=== PATIENT | female | born 1990 | race Caucasian/White ===

== ENCOUNTER 2016-12-23 08:49 | Emergency (ER) | payer OTHER ==
[~2016-12-23] VITALS: Ht 151.1 cm; Wt 43.2 kg
[~2016-12-23 08:49] MED LIST: ALBU0.08 INH; LEVO-18 PO; ONDA8TAB9 PO
[2016-12-23 08:53] VITALS: TEMP 36.7; Ht 151.1 cm; Wt 43.2 kg
[2016-12-23] MEDS ORDERED: SODIUM CHLORIDE 0.9% 1000ML 1,000 ML IV STA (09:14)
[2016-12-23] MEDS ORDERED: ONDANSETRON INJ 2 MG/ML 2 ML VIAL IV STA (09:14)
[2016-12-23 09:23] LABS: BASO % 0.2 %; BASO ABS # 0.02 K/uL (0-0.2); COMPLETE YES; EOS % 0.4 %; HEMATOCRIT 44.4 % (37-47); IG% 0.2 %; LYMPH % 17.9 %; LYMPH ABS # 1.72 K/uL (1.2-3.4); MEAN CELL VOLUME 90.6 fL (80-100); MEAN CORPUSCULAR HEMOGLOBIN 30.4 pg (25-34); MEAN CORPUSCULAR HGB CONC 33.6 g/dl (32-36); MEAN PLATELET VOLUME 10.2 fL (7.4-10.4); MONO % 8.8 %; NEUT % 72.5 %; PLATELET COUNT 207 K/uL (130-400); WHITE BLOOD COUNT 9.59 K/uL (4.8-10.8)
[2016-12-23] MEDS: FENTANYL CITRATE INJ 50 MCG/1 ML 2 ML VIAL IV PRN ×2 (09:27→11:24)
[2016-12-23 09:33] LABS: CALCIUM 8.9 mg/dl (8.5-10.1)
[2016-12-23] MEDS ORDERED: SBTSL/8 PO (09:33)
[2016-12-23] MEDS ORDERED: ALBINS/ INH (09:33)
[2016-12-23 09:34] LABS: ALT/SGPT 19 U/L (12-78); BLOOD UREA NITROGEN 10 mg/dl (7-18); BUN/CREATININE RATIO 15.4 (10-20); CARBON DIOXIDE 25 mmol/L (21-32); CHLORIDE 105 mmol/L (98-107); CREATININE 0.65 mg/dl (0.60-1.20); GLUCOSE 93 mg/dl (70-99); POTASSIUM 3.8 mmol/L (3.5-5.1); SODIUM 140 mmol/L (136-145)
[2016-12-23 09:34] LABS: URINE APPEARANCE CLOUDY (CLEAR); URINE BILIRUBIN NEG (NEG); URINE COLOR DK YELLOW; URINE EPITHELIAL CELL AUTO >30 /lpf (0-5); URINE NITRITE NEG (NEG); URINE PH 7.5 (4.5-7.5); UROBILINOGEN NEG (NEG); ZZUR CULT IF INDIC CLEAN CATCH YES
--- NOTE | 2016-12-23 09:35 | DIAGNOSTIC IMAGING REPORT ---
CHEST ONE VIEW PORTABLE CLINICAL HISTORY: ABDOMINAL PAIN/GI pain. Nausea. COMPARISON STUDY: No previous studies for comparison. FINDINGS: Moderate pulmonary hyperaeration. Patient is rotated somewhat to the left. Underlying emphysematous change. IMPRESSION: Pulmonary hyperaeration. Electronically signed by: Bipin Carcamo M.D. 12/23/2016 9:33 AM Dictated Date/Time: 12/23/2016 9:32 AM
[2016-12-23 09:37] LABS: ALKALINE PHOSPHATASE 81 U/L (45-117); AST/SGOT 14 U/L (15-37)
[2016-12-23 09:42] LABS: MANUAL MICROSCOPIC REQUIRED? NO; REVIEW REQ? NO
--- NOTE | 2016-12-23 10:57 | EMERGENCY ROOM VISIT NOTE ---
History Report prepared by Marielena: David Jefferson Under the Supervision of: Dr. Sulaiman Geller D.O. First contact with patient: 09:09 Chief Complaint: ABDOMINAL PAIN Stated Complaint: ABDOMINAL PAIN Nursing Triage Summary: pt reports abdominal pain started this morning. hx of pancreatitis History of Present Illness The patient is a 26 year old female who presents to the Emergency Room via EMS with complaints of worsening abdominal pain that started this morning. The patient is tearful due to the pain and she currently rates the pain as a 10 out of 10 in severity. She notes that 3 years ago, she was swimming in the [employer] and ended up getting a parasite, and she later developed pancreatitis. The patient says that she was told by doctors in [place] that she may possibly be developing cancer in her pancreas. She states that she has only taken the medication that she was given in the ambulance. The patient takes prescribed Buprenorphine because she says that she has been on pain medications all her life to to chronic pain problems. 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 The patient also notes chronic back pain. Source of History: patient Onset: This morning Position: abdomen Symptom Intensity: 10/10 in severity, crying Timing: worsening Note: No other associated symptoms noted. Review of Systems See HPI for pertinent positives & negatives. A total of 10 systems reviewed and were otherwise negative. 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 Surgical Problems: (1) Bowel surgery (2) dental surgery (3) History of intestinal surgery (4) Surgery to correct clubfoot Family History Cancer Diabetes mellitus Hypertension Seizures Social History Smoking Status: Current Every Day Smoker Alcohol Use: none Marital Status: single Occupation Status: unemployed Current/Historical Medications Scheduled Albuterol Sulf (Proventil 0.083% 2.5MG/3ML), 2.5 MG INH QID Buprenorphine HCl (Buprenorphine HCl), 8 MG PO TID Allergies Coded Allergies: Anesthetics, Amide (Unverified Allergy, Unknown, /, 12/23/16) ANESTHETICS Ketorolac Tromethamine (Unverified Allergy, Unknown, ., 12/23/16) Naloxone (Unverified Allergy, Unknown, ., 12/23/16) Penicillins (Unverified Allergy, Unknown, ., 12/23/16) Physical Exam Vital Signs Date Time Temp Pulse Resp B/P Pulse Ox O2 Delivery O2 Flow Rate FiO2 12/23/16 10:49 94 18 143/96 96 Room Air 12/23/16 09:27 79 16 114/82 96 Room Air 12/23/16 09:02 69 12/23/16 08:53 36.7 81 16 157/97 100 Room Air Physical Exam CONSTITUTIONAL/VITAL SIGNS: Reviewed / noted above. GENERAL: Non-toxic in appearance. INTEGUMENTARY: Warm, dry, and [place]. HEAD: Normocephalic. EYES: without scleral icterus or trauma. ENT/OROPHARYNX: clear and moist. LYMPHADENOPATHY/NECK: Is supple without lymphadenopathy or meningismus. RESPIRATORY: Lungs clear and equal. CARDIOVASCULAR: Regular rate and rhythm. GI/ABDOMEN: Soft. Mild epigastric tenderness.No organomegaly or pulsatile mass. No rebound or guarding. Normal bowel sounds. EXTREMITIES: Warm and well perfused. BACK: No CVA tenderness. NEUROLOGICAL: Intact without focal deficits. PSYCHIATRIC: normal affect. MUSCULOSKELETAL: Normally developed with good muscle tone. Medical Decision & Procedures ER Provider Diagnostic Interpretation: X ray results and stated below per my interpretation and radiology interpretation. CHEST ONE VIEW PORTABLE CLINICAL HISTORY: ABDOMINAL PAIN/GI pain. Nausea. COMPARISON STUDY: No previous studies for comparison. FINDINGS: Moderate pulmonary hyperaeration. Patient is rotated somewhat to the left. Underlying emphysematous change. IMPRESSION: Pulmonary hyperaeration. Electronically signed by: Bipin Carcamo M.D. 12/23/2016 9:33 AM Dictated Date/Time: 12/23/2016 9:32 AM Laboratory Results 12/23/16 08:53 Red Blood Count 4.90, Mean Corpuscular Volume 90.6, Mean Corpuscular Hemoglobin 30.4, Mean Corpuscular Hemoglobin Concent 33.6, Mean Platelet Volume 10.2, Neutrophils (%) (Auto) 72.5, Lymphocytes (%) (Auto) 17.9, Monocytes (%) (Auto) 8.8, Eosinophils (%) (Auto) 0.4, Basophils (%) (Auto) 0.2, Neutrophils # (Auto) 6.95, Lymphocytes # (Auto) 1.72, Monocytes # (Auto) 0.84, Eosinophils # (Auto) 0.04, Basophils # (Auto) 0.02 12/23/16 08:53 Test 12/23/16 08:53 12/23/16 08:57 White Blood Count 9.59 K/uL (4.8-10.8) Red Blood Count 4.90 M/uL (4.2-5.4) Hemoglobin 14.9 g/dL (12.0-16.0) Hematocrit 44.4 % (37-47) Mean Corpuscular Volume 90.6 fL (80-100) Mean Corpuscular Hemoglobin 30.4 pg (25-34) Mean Corpuscular Hemoglobin Concent 33.6 g/dl (32-36) Platelet Count 207 K/uL (130-400) Mean Platelet Volume 10.2 fL (7.4-10.4) Neutrophils (%) (Auto) 72.5 % Lymphocytes (%) (Auto) 17.9 % Monocytes (%) (Auto) 8.8 % Eosinophils (%) (Auto) 0.4 % Basophils (%) (Auto) 0.2 % Neutrophils # (Auto) 6.95 K/uL (1.4-6.5) Lymphocytes # (Auto) 1.72 K/uL (1.2-3.4) Monocytes # (Auto) 0.84 K/uL (0.11-0.59) Eosinophils # (Auto) 0.04 K/uL (0-0.5) Basophils # (Auto) 0.02 K/uL (0-0.2) RDW Standard Deviation 42.6 fL (36.4-46.3) RDW Coefficient of Variation 13.0 % (11.5-14.5) Immature Granulocyte % (Auto) 0.2 % Immature Granulocyte # (Auto) 0.02 K/uL (0.00-0.02) Anion Gap 10.0 mmol/L (3-11) Est Creatinine Clear Calc Drug Dose 89.4 ml/min Estimated GFR () 142.0 Estimated GFR (Non- 122.5 BUN/Creatinine Ratio 15.4 (10-20) Calcium Level 8.9 mg/dl (8.5-10.1) Total Bilirubin 0.3 mg/dl (0.2-1) Direct Bilirubin < 0.1 mg/dl (0-0.2) Aspartate Amino Transf (AST/SGOT) 14 U/L (15-37) Alanine Aminotransferase (ALT/SGPT) 19 U/L (12-78) Alkaline Phosphatase 81 U/L (45-117) Total Protein 7.9 gm/dl (6.4-8.2) Albumin 3.9 gm/dl (3.4-5.0) Lipase 133 U/L (73-393) Urine Color DK YELLOW Urine Appearance CLOUDY (CLEAR) Urine pH 7.5 (4.5-7.5) Urine Specific [place] 1.030 (1.000-1.030) Urine Protein TRACE (NEG) Urine Glucose (UA) NEG (NEG) Urine Ketones 3+ (NEG) Urine Occult Blood NEG (NEG) Urine Nitrite NEG (NEG) Urine Bilirubin NEG (NEG) Urine Urobilinogen NEG (NEG) Urine Leukocyte Esterase NEG (NEG) Urine WBC (Auto) 1-5 /hpf (0-5) Urine RBC (Auto) 0-4 /hpf (0-4) Urine Hyaline Casts (Auto) 1-5 /lpf (0-5) Urine Epithelial Cells (Auto) >30 /lpf (0-5) Urine Bacteria (Auto) 1+ (NEG) Urine Test NEG (NEG) Laboratory results as stated above per my review. Medications Administered Medications (Trade) Dose Ordered Sig/Shelley Route Start Time Stop Time Status Last Admin Dose Admin Sodium Chloride (Nss 1000ml) 1,000 ml @ 999 mls/hr Q1H1M STAT IV 12/23/16 09:14 12/23/16 10:14 DC 12/23/16 09:14 999 MLS/HR Ondansetron HCl (Zofran Inj) 4 mg NOW STAT IV 12/23/16 09:14 12/23/16 09:16 DC 12/23/16 09:26 4 MG Fentanyl Citrate (Fentanyl Inj) 50 mcg Q1H PRN IV 12/23/16 09:15 01/06/17 09:14 12/23/16 09:27 50 MCG ED Course 0910: Previous medical records were reviewed. The patient was evaluated in room B11B. A complete history and physical examination was performed. 0914: Ordered Zofran Inj 4 mg IV, NSS 1000 ml @ 999 mls/hr IV. 0915: Ordered Fentanyl Inj 50 mcg IV PRN. Medical Decision Differential considered: pancreatitis, hepatitis, or acute cholecystitis, AAA, UTI, pyelonephritis, kidney stones, appendicitis, diverticulitis, shingles, bowel obstruction mesenteric ischemia, intussusception,hernia, ovarian torsion , ruptured ovarian cyst,ectopic , . This is a 26-year-old female who presents to the ED with a chief complaint of epigastric abdominal pain. She is transferred by EMS and given fentanyl IV. The patient presents stating that she developed pain today. She reports a history of pancreatitis in the past. She is on chronic medication for chronic pain. She later told me that she ran out of this medication and is not due for refill until next week. Physical exam reveals mild epigastric tenderness. Chest x-ray did not show acute disease. CBC is normal. Complete metabolic panel was normal. Lipase is negative. Urine revealed 3+ ketones. She is not . The patient was treated with IV Zofran, IV fluids and IV fentanyl. She is felt to be stable for discharge and outpatient follow-up. Impression Primary Impression: Epigastric abdominal pain Scribe Attestation The scribe's documentation has been prepared under my direction and personally reviewed by me in its entirety. I confirm that the note above accurately reflects all work, treatment, procedures, and medical decision making performed by me. Departure Information Dispostion Home / Self-Care Referrals No Doctor, Assigned (PCP) Patient Instructions My [facility] Additional Instructions Follow-up with your doctor for further care and evaluation in 1-2 days. Return to the emergency department for worsening or new symptoms or any concerns. You have been examined and treated today on an emergency basis only. This is not a substitute for, or an effort to provide, complete comprehensive medical care. It is impossible to recognize and treat all injuries or illnesses in a single emergency department visit. It is therefore important that you follow up closely with your doctor. Call as soon as possible for an appointment.
[2016-12-23 11:23] VITALS: BP 145/100; PULSE 83; O2SAT 99
== END 2016-12-23 11:35 | disposition home or self-care (01) ==
LOC: C.EDB 08:49 → EDBD 08:49 → C.EDB 11:35
DX: R10.13 Epigastric pain (principal); Z87.19 Personal history of other diseases of the digestive system; J45.909 Unspecified asthma, uncomplicated; F32.9 Major depressive disorder, single episode, unspecified; Q33.6 Congenital hypoplasia and dysplasia of lung; Z80.9 Family history of malignant neoplasm, unspecified; Z83.3 Family history of diabetes mellitus; Z82.49 Family history of ischemic heart disease and other diseases of the circulatory system; F17.210 Nicotine dependence, cigarettes, uncomplicated; Z79.899 Other long term (current) drug therapy

== ENCOUNTER 2017-03-25 17:54 | Emergency (ER) | payer OTHER ==
[~2017-03-25] VITALS: Ht 151.1 cm; Wt 44.0 kg
[~2017-03-25 17:54] MED LIST changes: +ALBINS/ INH; -ALBU0.08 INH; -LEVO-18 PO; -ONDA8TAB9 PO; +SBTSL/8 PO
[2017-03-25 18:07] VITALS: Ht 151.1 cm; Wt 44.0 kg
[2017-03-25] MEDS ORDERED: ONDANSETRON INJ 2 MG/ML 2 ML VIAL IV STA (18:12)
[2017-03-25] MEDS ORDERED: DiphenhydrAMINE HCL 50 MG/ML VIAL IV STA (18:12)
[2017-03-25] MEDS ORDERED: SODIUM CHLORIDE 0.9% 1000ML 1,000 ML IV ONE (18:15)
[2017-03-25] MEDS ORDERED: ACETAMINOPHEN IV 650 MG in EMPTY BAG 0 ML IV ONE (18:15)
[2017-03-25] MEDS ORDERED: BUPR8SUB19 SL (18:43)
[2017-03-25] MEDS ORDERED: PRLSR20 PO (18:43)
[2017-03-25 19:04] LABS: BASO % 0.2 %; BASO ABS # 0.02 K/uL (0-0.2); COMPLETE YES; EOS % 0.6 %; HEMATOCRIT 43.8 % (37-47); IG% 0.1 %; LYMPH % 18.9 %; LYMPH ABS # 1.79 K/uL (1.2-3.4); MEAN CELL VOLUME 89.8 fL (80-100); MEAN CORPUSCULAR HEMOGLOBIN 30.1 pg (25-34); MEAN CORPUSCULAR HGB CONC 33.6 g/dl (32-36); MEAN PLATELET VOLUME 9.5 fL (7.4-10.4); MONO % 5.9 %; NEUT % 74.3 %; PLATELET COUNT 221 K/uL (130-400); RED BLOOD COUNT 4.88 M/uL (4.2-5.4); WHITE BLOOD COUNT 9.49 K/uL (4.8-10.8)
[2017-03-25 19:11] LABS: URINE APPEARANCE CLOUDY (CLEAR); URINE BILIRUBIN NEG (NEG); URINE COLOR DK YELLOW; URINE EPITHELIAL CELL AUTO >30 /lpf (0-5); URINE NITRITE NEG (NEG); URINE PH 7.5 (4.5-7.5); URINE SPECIFIC GRAVITY 1.028 (1.000-1.030); UROBILINOGEN NEG (NEG); ZZUR CULT IF INDIC CLEAN CATCH YES
[2017-03-25 19:13] LABS: MANUAL MICROSCOPIC REQUIRED? NO; REVIEW REQ? NO
[2017-03-25 19:21] LABS: BUN/CREATININE RATIO 15.1 (10-20); CALCIUM 8.5 mg/dl (8.5-10.1); CREATININE 0.76 mg/dl (0.60-1.20); POTASSIUM 3.8 mmol/L (3.5-5.1)
[2017-03-25 19:29] LABS: BENZODIAZEPINE, URINE NEG (NEG); COCAINE,URINE NEG (NEG); PHENCYCLIDINE, URINE NEG (NEG)
--- NOTE | 2017-03-25 20:01 | DIAGNOSTIC IMAGING REPORT ---
ABDOMEN 2VIEW W/PA CHEST RTN CLINICAL HISTORY: vague abd pain pain COMPARISON STUDY: 12/23/2016 FINDINGS: Moderate pulmonary hyperaeration. Patient is somewhat rotated. Nonspecific interstitial infiltrative changes right hemithorax. Nonobstructive bowel pattern. IMPRESSION: 1. Mild pulmonary hyperaeration. 2. Poorly defined interstitial infiltrate right hemithorax, combined with pre-existing bronchiectatic change. 3. Nonobstructive bowel pattern. The above report was generated using voice recognition software. It may contain grammatical, syntax or spelling errors. Electronically signed by: Bipin Carcamo M.D. 03/25/2017 7:59 PM Dictated Date/Time: 03/25/2017 7:58 PM
[2017-03-25] MEDS ORDERED: LEVOFLOXACIN 250 MG TAB PO ONE (20:15)
[2017-03-25] MEDS ORDERED: LEVO-366 PO (20:15)
[2017-03-25] MEDS ORDERED: ONDANSETRON HOME PACK 4MG OD TAB PO ONE (20:15)
[2017-03-25] MEDS ORDERED: ONDA4TAB10 SL (20:15)
[2017-03-25 20:38] VITALS: BP 138/100; PULSE 82; TEMP 36.9; O2SAT 100
--- NOTE | 2017-03-25 22:47 | EMERGENCY ROOM VISIT NOTE ---
History First contact with patient: 18:01 Chief Complaint: ABDOMINAL PAIN Stated Complaint: AB PAIN History of Present Illness The patient is a 26 year old female who presents to the Emergency Room with complaints of generalized abdominal pain, nausea, and vomiting for the past one day. The patient does not have fever or chills. She has not had chest pain, chest tightness, or shortness of breath. No dysuria or diarrhea. The patient has had episodes like this in the past. She arrives via ambulance from [facility] and has had 4 mg IV Zofran prehospital. The patient is unsure of her status. She was on Subutex up until last month, and stopped the medication. She has a history of intestinal surgery as a child. She rates her overall discomfort an 8/10. She states the Zofran only mildly improve her symptoms. Review of Systems More than 10 systems were reviewed and otherwise negative with the exception of history of present illness. 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 Surgical Problems: (1) Bowel surgery (2) dental surgery (3) History of intestinal surgery (4) Surgery to correct clubfoot Family History Cancer Diabetes mellitus Hypertension Seizures Social History Smoking Status: Current Every Day Smoker Alcohol Use: none Marital Status: single Occupation Status: unemployed Current/Historical Medications Scheduled Albuterol Sulf (Proventil 0.083% 2.5MG/3ML), 2.5 MG INH QID Buprenorphine Hcl (Subutex), 1 TAB SL TID Levofloxacin (Levaquin), 500 MG PO DAILY Omeprazole (Prilosec), 20 MG PO DAILY Ondasetron Odt (Zofran Odt), 4 MG SL Q6H Physical Exam Vital Signs Date Time Temp Pulse Resp B/P (MAP) Pulse Ox O2 Delivery O2 Flow Rate FiO2 03/25/17 20:38 36.9 82 18 138/100 100 03/25/17 18:07 36.9 83 18 154/107 100 Room Air Pain Rating (0-10): 8.0 Physical Exam VITALS: Vitals are noted on the nurse's note and reviewed by myself. Vital signs stable. GENERAL: Well-developed, well-nourished, white female, who is in no acute distress and resting comfortably. Patient is cooperative with the examination. NECK: Supple without nuchal rigidity. No lymphadenopathy. No thyromegaly. Cervical spine is nontender. HEART: Regular rate and rhythm without murmurs gallops or rubs. LUNGS: Clear to auscultation bilaterally without wheezes, rales or rhonchi. No retractions or accessory muscle use. ABDOMEN: Positive normal bowel sounds x 4. Soft, nontender, without masses or organomegaly. No guarding or rebound tenderness. No CVA tenderness. MUSCULOSKELETAL: No muscle atrophy, erythema, or edema noted. Full range of motion without joint tenderness in all extremities. NEURO: Patient was alert and oriented to person place and time. CN II through XII grossly intact. Medical Decision & Procedures ER Provider Diagnostic Interpretation: ABDOMEN 2VIEW W/PA CHEST RTN CLINICAL HISTORY: vague abd pain pain COMPARISON STUDY: 12/23/2016 FINDINGS: Moderate pulmonary hyperaeration. Patient is somewhat rotated. Nonspecific interstitial infiltrative changes right hemithorax. Nonobstructive bowel pattern. IMPRESSION: 1. Mild pulmonary hyperaeration. 2. Poorly defined interstitial infiltrate right hemithorax, combined with pre-existing bronchiectatic change. 3. Nonobstructive bowel pattern. Laboratory Results 03/25/17 18:42 Red Blood Count 4.88, Mean Corpuscular Volume 89.8, Mean Corpuscular Hemoglobin 30.1, Mean Corpuscular Hemoglobin Concent 33.6, Mean Platelet Volume 9.5, Neutrophils (%) (Auto) 74.3, Lymphocytes (%) (Auto) 18.9, Monocytes (%) (Auto) 5.9, Eosinophils (%) (Auto) 0.6, Basophils (%) (Auto) 0.2, Neutrophils # (Auto) 7.05, Lymphocytes # (Auto) 1.79, Monocytes # (Auto) 0.56, Eosinophils # (Auto) 0.06, Basophils # (Auto) 0.02 03/25/17 18:42 Test 03/25/17 17:30 03/25/17 18:42 Urine Color DK YELLOW Urine Appearance CLOUDY (CLEAR) Urine pH 7.5 (4.5-7.5) Urine Specific [place] 1.028 (1.000-1.030) Urine Protein NEG (NEG) Urine Glucose (UA) NEG (NEG) Urine Ketones NEG (NEG) Urine Occult Blood NEG (NEG) Urine Nitrite NEG (NEG) Urine Bilirubin NEG (NEG) Urine Urobilinogen NEG (NEG) Urine Leukocyte Esterase TRACE (NEG) Urine WBC (Auto) 10-30 /hpf (0-5) Urine RBC (Auto) 0-4 /hpf (0-4) Urine Hyaline Casts (Auto) 5-10 /lpf (0-5) Urine Epithelial Cells (Auto) >30 /lpf (0-5) Urine Bacteria (Auto) 2+ (NEG) Urine Test NEG (NEG) Urine Opiates Screen NEG (NEG) Urine Methadone, Qualitative NEG (NEG) Urine Barbiturates POS (NEG) Urine Phencyclidine (PCP) Level NEG (NEG) Ur Amphetamine/Methamphetamine NEG (NEG) MDMA (Ecstasy) Screen NEG (NEG) Urine Benzodiazepines Screen NEG (NEG) Urine Cocaine Metabolite NEG (NEG) Urine Marijuana (THC) POS (NEG) White Blood Count 9.49 K/uL (4.8-10.8) Red Blood Count 4.88 M/uL (4.2-5.4) Hemoglobin 14.7 g/dL (12.0-16.0) Hematocrit 43.8 % (37-47) Mean Corpuscular Volume 89.8 fL (80-100) Mean Corpuscular Hemoglobin 30.1 pg (25-34) Mean Corpuscular Hemoglobin Concent 33.6 g/dl (32-36) Platelet Count 221 K/uL (130-400) Mean Platelet Volume 9.5 fL (7.4-10.4) Neutrophils (%) (Auto) 74.3 % Lymphocytes (%) (Auto) 18.9 % Monocytes (%) (Auto) 5.9 % Eosinophils (%) (Auto) 0.6 % Basophils (%) (Auto) 0.2 % Neutrophils # (Auto) 7.05 K/uL (1.4-6.5) Lymphocytes # (Auto) 1.79 K/uL (1.2-3.4) Monocytes # (Auto) 0.56 K/uL (0.11-0.59) Eosinophils # (Auto) 0.06 K/uL (0-0.5) Basophils # (Auto) 0.02 K/uL (0-0.2) RDW Standard Deviation 39.6 fL (36.4-46.3) RDW Coefficient of Variation 12.1 % (11.5-14.5) Immature Granulocyte % (Auto) 0.1 % Immature Granulocyte # (Auto) 0.01 K/uL (0.00-0.02) Anion Gap 5.0 mmol/L (3-11) Est Creatinine Clear Calc Drug Dose 77.9 ml/min Estimated GFR () 125.5 Estimated GFR (Non- 108.3 BUN/Creatinine Ratio 15.1 (10-20) Calcium Level 8.5 mg/dl (8.5-10.1) Total Bilirubin 0.3 mg/dl (0.2-1) Aspartate Amino Transf (AST/SGOT) 13 U/L (15-37) Alanine Aminotransferase (ALT/SGPT) 16 U/L (12-78) Alkaline Phosphatase 59 U/L (45-117) Total Protein 7.1 gm/dl (6.4-8.2) Albumin 3.6 gm/dl (3.4-5.0) Globulin 3.5 gm/dl (2.5-4.0) Albumin/Globulin Ratio 1.0 (0.9-2) Lipase 175 U/L (73-393) Medications Administered Medications (Trade) Dose Ordered Sig/Shelley Route Start Time Stop Time Status Last Admin Dose Admin Sodium Chloride 1,000 ml @ 999 mls/hr Q1H1M ONCE IV 03/25/17 18:15 03/25/17 19:15 DC 03/25/17 18:15 999 MLS/HR Diphenhydramine HCl (Benadryl Inj) 25 mg NOW STAT IV 03/25/17 18:12 03/25/17 18:14 DC 03/25/17 18:12 25 MG Ondansetron HCl (Zofran Inj) 4 mg NOW STAT IV 03/25/17 18:12 03/25/17 18:14 DC 03/25/17 18:12 4 MG Acetaminophen 650 mg/Empty Bag 65 ml @ 260 mls/hr NOW ONCE IV 03/25/17 18:15 03/25/17 18:29 DC 03/25/17 18:15 260 MLS/HR Levofloxacin (Levaquin Tab) 500 mg NOW ONCE PO 03/25/17 20:15 03/25/17 20:16 DC 03/25/17 20:15 500 MG Ondansetron HCl (ZOFRAN ODT 4MG Home Pack) 1 [facility] UD ONCE PO 03/25/17 20:15 03/25/17 20:16 DC 03/25/17 20:15 1 [facility] ED Course Physical exam and history were performed. Nursing notes, EMR, and Medication List were personally reviewed. Patient appears to have nausea and vomiting for the past one day. She is not able to categorize the amount of vomiting, stating "it is a lot". IV access was established and labs were obtained. Patient was hydrated with normal saline and given additional Zofran here in the department. She does have a history of abdominal surgery and plain films were performed. Urine was collected. The patient's blood work is as above and was reviewed. She does not have a significantly elevated white blood cell count, gross anemia, bandemia, or significant electrolyte imbalance. Lipase and transaminases are nondiagnostic. Her urine may represent an infection with culture pending. Additionally her plain films of the chest and abdomen show a possible ill-defined infiltrate. Because of this the patient will be started on Levaquin. Her drug of abuse screen was positive for barbiturates and marijuana. She is not . Repeat abdominal exam continues to be without tenderness or suggestion of surgical abdomen. The case was discussed with my attending physician, Dr. Quintanilla. The patient did request pain medication several times throughout her ER stay. I do not feel comfortable providing her narcotic pain medication for her symptoms. I strongly suspect there is an element of marijuana-induced cyclic vomiting contributing to her symptoms, although a viral etiology is possible as well. There has been concerns from previous ER visits that the patient does exhibit drug-seeking behavior. The patient was asked to discontinue marijuana. She will need to follow with her primary care physician for further management. The patient will be given a continuation course of her Levaquin, as well as a short course of Zofran. The patient was otherwise invited back to the ER with any new, worsening, or concerning symptoms. She rated her discomfort an 8/10 at the time of departure. The chart was completed utilizing [employer] Voice Recognition Software. Grammatical errors, random word insertions, pronoun errors, and incomplete sentences are an occasional consequence of this system due to software limitations, ambient noise, and hardware issues. Any formal questions or concerns about the content, text, or information contained within the body of this dictation should be directly addressed to the provider for clarification. . Medical Decision Differential diagnosis: Etiologies such as appendicitis, diverticulitis, PUD, biliary pathology, UTI, pancreatitis, obstruction, mesenteric ischemia, aortic pathology, infections, inflammatory bowel disease, renal colic, as well as others were entertained. [place] Drug Monitoring Program Search Results: patient reviewed within database Blood Pressure Screening Patient's blood pressure: Elevated blood pressure Blood pressure disposition: Referred to PCP Impression Primary Impression: Nausea and vomiting Additional Impressions: Urinary tract infection Marijuana use Departure Information Dispostion Home / Self-Care Condition GOOD Prescriptions Ondasetron Odt (ZOFRAN ODT) 4 Mg Tab 4 MG SL Q6H for Nausea, #12 TAB Prov: Ean Garsia PA-C 03/25/17 Levofloxacin (Levaquin) 500 Mg Tab 500 MG PO DAILY for 6 Days, #6 TAB Prov: Ean Garsia PA-C 03/25/17 Forms HOME CARE DOCUMENTATION FORM, IMPORTANT VISIT INFORMATION Patient Instructions My [facility] Additional Instructions You were seen and evaluated today on an emergency basis only. This is not a substitute for, or an effort to provide, complete comprehensive medical care. It is not possible to recognize and treat all injuries or illnesses in a single emergency department visit. For this reason it is recommended that you followup with your primary care physician this week for ongoing care and evaluation. Avoid marijuana. This is likely contributing very strongly to your symptoms. Zofran 1 tablet every 6 hrs as needed for nausea. Take Levaquin 500 milligrams daily for the next 6 days. Drink plenty of fluids and remain well hydrated. You are welcome to return to the emergency department anytime with new, worsening, or concerning symptoms. Problem Qualifiers
== END 2017-03-25 20:40 | disposition home or self-care (01) ==
LOC: EDBD 17:54 → C.EDB 17:55
DX: N39.0 Urinary tract infection, site not specified (principal); R11.2 Nausea with vomiting, unspecified; R10.9 Unspecified abdominal pain; F17.210 Nicotine dependence, cigarettes, uncomplicated; Z79.899 Other long term (current) drug therapy; F12.10 Cannabis abuse, uncomplicated

== ENCOUNTER 2019-01-09 16:37 | Observation (INO) ==
--- OUTSIDE RECORDS SUMMARY | 2019-01-09 16:41 | External Medical Summary | Continuity of Care Document ---
:1990 Author Name Adalgisa Berry, Provider Address Unavailable Unavailable , Care Team Providers Name Role Phone Case Danilo CUENCA Unavailable [email or web address], [email or web address] Unavailable Unavailable Problems Active medical history not documented Allergies and Adverse Reactions Allergy history not documented Medications Medications not documented Procedures Procedures not documented Immunizations Immunizations not documented Plan of Treatment Planned Observations Planned Goals not documented Results No Known Results Results not documented
[2019-01-09] MEDS ORDERED: HYDROmorphone INJ 0.5 MG/0.5 ML SYR IV STA (16:58)
[2019-01-09] MEDS ORDERED: ONDANSETRON INJ 2 MG/ML 2 ML VIAL IV STA (16:58)
[2019-01-09] MEDS ORDERED: SODIUM CHLORIDE 0.9% 1000ML 1,000 ML IV ONE (16:58)
[2019-01-09] MEDS ORDERED: FAMOTIDINE 20MG/5ML IV PUSH IV STA (16:58)
[2019-01-09] MEDS ORDERED: MULTI-VITAMIN INFUSION 10 ML, THIAMINE HCL 100 MG, FOLIC ACID 1 MG in SODIUM CHLORIDE 0... IV STA (17:00)
[2019-01-09] MEDS ORDERED: FOLIC ACID 1 MG TAB PO STA (17:00)
[2019-01-09] MEDS ORDERED: MAGNESIUM SULFATE / D5W 1 GM/100 ML BAG IV ONE (17:00)
[2019-01-09 17:30] LABS: Basophils # (auto) 0.02 K/uL (0-0.2); Basophils % (auto) 0.2 %; Eosinophils # (auto) 0.05 K/uL (0-0.5); Eosinophils % (auto) 0.4 %; Hematocrit (blood only) 40.7 % (37-47); Hemoglobin 14.5 g/dL (12.0-16.0); Immature Granulocytes # (auto) 0.03 K/uL (0.00-0.02); Immature Granulocytes % (auto) 0.2 %; Lymphocytes # (auto) 1.06 K/uL (1.2-3.4); Lymphocytes % (auto) 8.5 %; Mean Corpuscular Hgb Conc 35.6 g/dL (32-36); Mean Corpuscular Volume 88.3 fL (80-100); Mean Platelet Volume 10.4 fL (7.4-10.4); Monocytes # (auto) 0.76 K/uL (0.11-0.59); Monocytes % (auto) 6.1 %; Neutrophils # (auto) 10.58 K/uL (1.4-6.5); Neutrophils % (auto) 84.6 %; Platelet Count 148 K/uL (130-400); RDW Coefficient of Variation 13.2 % (11.5-14.5); RDW Standard Deviation 42.6 fL (36.4-46.3); Red Blood Count 4.61 M/uL (4.2-5.4)
[2019-01-09 17:47] LABS: Albumin Level 3.4 gm/dl (3.4-5.0); BUN Creatinine Ratio 18.3 (10-20); Calcium 8.3 mg/dl (8.5-10.1); Creatinine Clr Calc Pharmacy 88.9 ml/min; Est GFR (African American) 148.8; Est GFR (Non-African American) 128.4; Potassium 3.8 mmol/L (3.5-5.1)
[2019-01-09 17:50] LABS: Albumin Globulin Ratio 0.9 (0.9-2); Bilirubin,Total 0.6 mg/dl (0.2-1); Globulin 3.6 gm/dl (2.5-4.0); Magnesium 1.8 mg/dl (1.8-2.4); Pregnancy Test, Serum Negative (Negative); Troponin I < 0.015 ng/ml (0-0.045)
[2019-01-09] MEDS ORDERED: ACETAMINOPHEN 1,000 MG/100 ML VIAL IV STA (19:02)
[2019-01-09] MEDS ORDERED: HYDROmorphone INJ 1 MG/ML SYRINGE IV STA ×3 (19:02→22:02)
[2019-01-09] MEDS ORDERED: IOVERSOL 100ml IV PRN (19:24)
--- NOTE | 2019-01-09 20:02 | CT Scan Report ---
ABDOMEN AND PELVIS CT WITH IV CONTRAST CT DOSE: 241.66 mGy.cm HISTORY: Mid abdominal pain. TECHNIQUE: Multiaxial CT images of the abdomen and pelvis were performed following the use of intrave nous contrast. A dose lowering technique was utilized adhering to the principles of ALARA. COMPARISON STUDY: Abdomen and pelvis CT 11/13/2010. FINDINGS: The lung bases demonstrate bronchiectasis with chronic scarring and a few opacified distal bronchi. There is a new 9 mm nodule within the left lower lobe on image 6. No pneumoperitoneum. No pn eumatosis. No fractures within the visualized osseous structures. Heterogeneous enhancement within th e liver with periportal edema. There is a linear cleft seen within the anterior segment of the right hepatic lobe. This is new from the prior study and could represent an area of scarring. There is trac e ascites seen within the abdomen. The spleen is at the upper limits of normal. The adrenal glands, p ancreas, and kidneys are unremarkable. No hydronephrosis. No retroperitoneal lymphadenopathy. The crist[place] n portal vein is patent. The venous structures are dilated suggestive of volume overload. The bladder and uterus are unremarkable. There is a slightly thick-walled cystic lesion within the right posteri or adnexa. This measures 4.4 cm and may represent a complex right ovarian cyst. The colon is complete ly decompressed resulting in suboptimal evaluation. Apparent thickening of the colon favors underdist ention. The visualized appendix is unremarkable. No evidence for bowel obstruction. IMPRESSION: 1. Redemonstration of the chronic scarring and bronchiectasis within the lung bases. 2. There is a new 9 mm nodule within left lower lobe. Pulmonary consultation as well as follow-up henok cribed below. 3. Apparent thickening of the colon is likely due to the complete decompression. A low-grade colitis could also have a similar appearance in the appropriate clinical setting. 4. Normal appendix. 5. Periportal edema suggestive of volume overload. This may account for the heterogeneous enhancement within the liver. Recommend correlation with LFTs to exclude an underlying hepatic abnormality. Ther e is also trace ascites. 6. A linear cleft within the anterior segment of the right hepatic lobe which is new from the prior s tudy. This could represent scarring or old trauma. 7. A 4.4 cm thick-walled cystic lesion within the right posterior adnexa. This favors a complex right ovarian cyst. Please refer to below summary of Fleischner criteria recommendations for follow-up of incidental CT n odules (Brigette Holden, Guidelines for management of small pulmonary nodules detected on CT scans: A sta tement from the Fleischner Society, Radiology 237: [phone].) SOLID NODULES Solitary nodule size: <6 mm * Low risk patients: no follow-up needed * high risk patients: optional CT at 12 months Solitary nodule size: 6-8 mm * Low risk patients: follow-up at 6-12 months, then consider further follow-up at 18-24 months * high risk patients: initial follow-up CT at 6-12 months and then at 18-24 months if no change Solitary nodule size: >8 mm * either low or high risk patients - consider follow-up CT at 3 months, and/or CT-PET, and/or biopsy Multiple nodules size: <6 mm * Low risk patients: no routine follow-up * high risk patients: optional CT at 12 months Multiple nodules size: 6-8 mm * Low risk patients: follow-up at 3-6 months, then consider further follow-up at 18-24 months * high risk patients: follow-up at 3-6 months, then at 18-24 months if no change Multiple nodules size: >8 mm * Low risk patients: follow-up at 3-6 months, then consider further follow-up at 18-24 months * high risk patients: follow-up at 3-6 months, then at 18-24 months if no change Note: newly detected indeterminate nodule in persons 35 years of age or older. * Low risk patients: minimal or absent history of smoking and/or other known risk factors * high risk patients: history of smoking or of other known risk factors (e.g. first degree relative with lung cancer, or exposure to asbestos, radon, uranium) * if a nodule up to 8 mm is partly solid or is ground glass further follow-up is required after 24 m onths to exclude possible slow growing adenocarcinoma (GERALDINE) SUBSOLID NODULES Solitary pure ground-glass nodule * nodule size <6 mm - no CT follow-up required * nodule size >=6 mm - follow-up CT at 6-12 months, then every 2 years until 5 years Solitary part-solid nodule * nodule size <6 mm - no CT follow-up required * nodule size >=6 mm - follow-up CT at 3-6 months. If unchanged, and solid component remains <6 mm, then annual follow-up for 5 years Multiple subsolid nodules * nodule size <6 mm - follow-up CT at 3-6 months, consider further follow-up at 2 and 4 years if sta ble * nodule size >=6 mm - follow-up CT at 3-6 months, subsequent management based on the most suspiciou s nodule(s) Electronically signed by: Myron Sweet M.D. 01/09/2019 7:59 PM
--- NOTE | 2019-01-09 21:26 | Ultrasound Report ---
PELVIC ULTRASOUND, TRANSABDOMINAL AND TRANSVAGINAL HISTORY: abd pain, R ovarian cyst COMPARISON: Abdomen and pelvis CT 01/09/2019. FINDINGS: Uterus: 8.2 x 4.6 x 4.7 cm. No uterine masses. Endometrial stripe: 1 cm in thickness. Right ovary: The right ovary is primarily replaced by a heterogeneous thick-walled cystic lesion eliazar uring 4.8 x 4.1 x 4.0 cm. This demonstrates internal septations and favors a hemorrhagic cyst. Left ovary: Normal in size and demonstrates normal color flow. Miscellaneous:Trace pelvic free fluid. IMPRESSION: A 4.8 x 4.1 x 4.0 cm complex right ovarian cyst. This favors a hemorrhagic cyst. Follow-up pelvic ult rasound in 6-8 weeks is recommended to ensure resolution. Electronically signed by: Myron Sweet M.D. 01/09/2019 9:25 PM
--- NOTE | 2019-01-09 21:26 | Ultrasound Report ---
ABDOMINAL ULTRASOUND, RIGHT UPPER QUADRANT HISTORY: Mid abdominal pain.. COMPARISON: None. FINDINGS: Pancreas: The pancreas demonstrates a normal echotexture. Liver: Unremarkable. Gallbladder: No gallbladder wall thickening. No gallstones. CBD: 2 mm. Right kidney: No hydronephrosis. IMPRESSION: No sonographic abnormality identified within the right upper quadrant. Electronically signed by: Myron Sweet M.D. 01/09/2019 9:23 PM
--- NOTE | 2019-01-09 22:09 | Emergency Department Note ---
Entered by Viry Olmedo acting as a scribe for Hasmukh Mast M.D. History of Present Illness General Chief complaint: Abdominal Pain Stated complaint: AB PAIN Source: patient Mode of arrival: EMS History of Present Illness Onset (ago): hour(s) 3 Location: abdomen Pain Consistency: + constant Associated symptoms: + denies other symptoms (back pain), + nausea/vomiting and + other (diarrhea) The patient is a 28 year old female who presents to the Emergency Room with complaints of constant abdominal pain since 1400 this afternoon. The patient also complains of nausea, vomiting, and diarrhea. She denies back pain or recent falls. She reports a history of pancreatitis. Feels the same. She denies alcohol use, but admits to marijuana use. Home Medications Home Medications Medication Instructions Recorded Confirmed Type albuterol sulfate 2.5 mg INHALATION QID 09/27/18 01/09/19 History albuterol sulfate [Ventolin HFA] 2 puff INHALATION QID 09/27/18 01/09/19 History buprenorphine HCl 8 mg SUBLINGUAL TID 09/27/18 01/09/19 History Allergies Allergy/AdvReac Type Severity Reaction Status Date / Time Anesthetics - Amide Type Allergy Unknown / Verified 01/09/19 17:56 ketorolac Allergy Unknown . Verified 01/09/19 17:56 naloxone Allergy Unknown . Verified 01/09/19 17:56 Penicillins Allergy Unknown . Verified 01/09/19 17:56 Past Med/Surg History Medical History Hypoplasia of lung Bronchiectasis with acute exacerbation (Acute) Marijuana use (Acute) Surgical History History of intestinal surgery (Resolved) Social History Preferred Language: Taiwanese Feels Safe at Home: Yes Smoking Status: Current every day smoker Review of Systems See HPI for pertinent positives & negatives. and A total of 10 systems reviewed and were otherwise negative Physical Exam Vital Signs Vital Signs - 24 hr 01/09/19 16:46 01/09/19 16:48 01/09/19 16:51 Temperature 36.3 C L Temperature Source Oral Sepsis Recent Fever Within 48 Hours No Sepsis New/Unexplained Change in Mental Status No Sepsis Action Taken by Nursing No Action Required Pulse Rate 48 L 63 55 L Pulse Rate [Finger] Pulse Rate from SpO2 Sensor 50 L 57 L Pulse Rhythm Regular Pulse Strength Normal Respiratory Rate 15 16 9 L Respiratory Effort / Characteristics Non-Labored Spontaneous Respiratory Depth Normal Respiratory Pattern Regular Blood Pressure 136/100 136/100 Blood Pressure [Left Arm] Blood Pressure Mean 112 112 Blood Pressure Mean [Left Arm] Blood Pressure Position [Left Arm] Pulse Oximetry 95 97 94 Oxygen Delivery Method Room Air 01/09/19 17:00 01/09/19 17:30 01/09/19 18:00 Temperature Temperature Source Sepsis Recent Fever Within 48 Hours Sepsis New/Unexplained Change in Mental Status Sepsis Action Taken by Nursing Pulse Rate 52 L 63 57 L Pulse Rate [Finger] Pulse Rate from SpO2 Sensor 51 L Pulse Rhythm Pulse Strength Respiratory Rate 15 17 10 L Respiratory Effort / Characteristics Respiratory Depth Respiratory Pattern Blood Pressure Blood Pressure [Left Arm] Blood Pressure Mean Blood Pressure Mean [Left Arm] Blood Pressure Position [Left Arm] Pulse Oximetry 98 Oxygen Delivery Method 01/09/19 18:30 01/09/19 19:00 01/09/19 19:30 Temperature Temperature Source Sepsis Recent Fever Within 48 Hours Sepsis New/Unexplained Change in Mental Status Sepsis Action Taken by Nursing Pulse Rate 83 Pulse Rate [Finger] Pulse Rate from SpO2 Sensor 55 L Pulse Rhythm Pulse Strength Respiratory Rate 20 18 Respiratory Effort / Characteristics Respiratory Depth Respiratory Pattern Blood Pressure Blood Pressure [Left Arm] Blood Pressure Mean Blood Pressure Mean [Left Arm] Blood Pressure Position [Left Arm] Pulse Oximetry 97 Oxygen Delivery Method 01/09/19 19:32 01/09/19 19:38 01/09/19 20:00 Temperature Temperature Source Sepsis Recent Fever Within 48 Hours Sepsis New/Unexplained Change in Mental Status Sepsis Action Taken by Nursing Pulse Rate Pulse Rate [Finger] 51 L Pulse Rate from SpO2 Sensor 62 58 L Pulse Rhythm Pulse Strength Respiratory Rate 20 Respiratory Effort / Characteristics Respiratory Depth Respiratory Pattern Blood Pressure 146/87 H Blood Pressure [Left Arm] 146/87 H Blood Pressure Mean 106 Blood Pressure Mean [Left Arm] 106 Blood Pressure Position [Left Arm] Lying Pulse Oximetry 100 96 97 Oxygen Delivery Method Room Air 01/09/19 20:01 01/09/19 20:30 01/09/19 20:32 Temperature Temperature Source Sepsis Recent Fever Within 48 Hours Sepsis New/Unexplained Change in Mental Status Sepsis Action Taken by Nursing Pulse Rate Pulse Rate [Finger] Pulse Rate from SpO2 Sensor 55 L 66 87 Pulse Rhythm Pulse Strength Respiratory Rate Respiratory Effort / Characteristics Respiratory Depth Respiratory Pattern Blood Pressure 108/81 142/98 H Blood Pressure [Left Arm] Blood Pressure Mean 90 112 Blood Pressure Mean [Left Arm] Blood Pressure Position [Left Arm] Pulse Oximetry 98 99 95 Oxygen Delivery Method 01/09/19 21:13 01/09/19 21:15 01/09/19 21:30 Temperature Temperature Source Sepsis Recent Fever Within 48 Hours Sepsis New/Unexplained Change in Mental Status Sepsis Action Taken by Nursing Pulse Rate Pulse Rate [Finger] Pulse Rate from SpO2 Sensor 47 L 73 59 L Pulse Rhythm Pulse Strength Respiratory Rate Respiratory Effort / Characteristics Respiratory Depth Respiratory Pattern Blood Pressure 120/92 Blood Pressure [Left Arm] Blood Pressure Mean 101 Blood Pressure Mean [Left Arm] Blood Pressure Position [Left Arm] Pulse Oximetry 98 100 90 Oxygen Delivery Method 01/09/19 21:31 01/09/19 22:00 01/09/19 22:01 Temperature Temperature Source Sepsis Recent Fever Within 48 Hours Sepsis New/Unexplained Change in Mental Status Sepsis Action Taken by Nursing Pulse Rate Pulse Rate [Finger] Pulse Rate from SpO2 Sensor 57 L 52 L 55 L Pulse Rhythm Pulse Strength Respiratory Rate Respiratory Effort / Characteristics Respiratory Depth Respiratory Pattern Blood Pressure 144/82 H 159/92 H Blood Pressure [Left Arm] Blood Pressure Mean 102 114 Blood Pressure Mean [Left Arm] Blood Pressure Position [Left Arm] Pulse Oximetry 90 99 99 Oxygen Delivery Method GENERAL: Awake, alert, Curled up on bed, holding stomach in pain. HENT: Normocephalic, atraumatic. EYES: Normal conjunctiva. Sclera non-icteric. NECK: Supple. No nuchal rigidity. RESPIRATORY: Clear to auscultation.Normal respiratory effort. CARDIAC: Bradycardic. Normal rhythm. Extremities warm and well perfused. GI: Soft, non-distended. Diffuse abdominal tenderness more RUQ then elsewhere. No masses. RECTAL: Deferred. MUSCULOSKELETAL: Atraumatic. Chest examination reveals no tenderness. LOWER EXTREMITIES: Calves are equal size bilaterally and non-tender. No edema NEURO: Normal sensorium. No sensory or motor deficits noted. No facial droop. SKIN: Warm and dry. No rash or jaundice noted. Course 1656: Past medical records reviewed. The patient was evaluated in room C2B. A complete history and physical exam was performed. 2200: I discussed the patient's case with Dr. Martínez, [facility]. He agrees to evaluate the patient for further management and care. Consultations Consultation #1: I discussed the patient's case with Dr. Martínez, [facility]. He agrees to evaluate the patient for further management and care. Time: 22:01 Administered Medications Ioversol (Optiray 320 100ml) 94 ml IV ONCE PRN PRN Reason: Interaction Checking Stop: 01/13/19 19:23 Last Admin: 01/09/19 19:24 Dose: 94 ml Documented by: [id number] Discontinued Medications Famotidine (Pepcid 20mg Iv Push) 20 mg IV ONE STA Stop: 01/09/19 16:59 Last Admin: 01/09/19 17:22 Dose: 20 mg Documented by: [id number] Folic Acid (Folvite) 1 mg PO ONE STA Stop: 01/09/19 17:01 Last Admin: 01/09/19 17:22 Dose: Not Given Documented by: [id number] Hydromorphone HCl (Dilaudid) 1 mg IV NOW STA Stop: 01/09/19 16:59 Last Admin: 01/09/19 17:22 Dose: 1 mg Documented by: [id number] Hydromorphone HCl (Dilaudid) 1 mg IV NOW STA Stop: 01/09/19 19:03 Last Admin: 01/09/19 19:07 Dose: 1 mg Documented by: [id number] Hydromorphone HCl (Dilaudid) 1 mg IV NOW STA Stop: 01/09/19 20:39 Last Admin: 01/09/19 20:42 Dose: 1 mg Documented by: [id number] Hydromorphone HCl (Dilaudid) 1 mg IV NOW STA Stop: 01/09/19 22:03 Last Admin: 01/09/19 22:09 Dose: 1 mg Documented by: [id number] Sodium Chloride (Nss 1000ml) 1,000 mls @ 999 mls/hr IV .Q1H1M ONE Stop: 01/09/19 17:58 Last Infusion: 01/09/19 18:58 Dose: 0 mls/hr Documented by: [id number] Admin: 01/09/19 17:22 Dose: 999 mls/hr Documented by: [id number] Magnesium Sulfate/Dextrose (Magnesium Sulfate / D5w) 1 gm in 100 mls @ 100 mls/hr IV ONE ONE Stop: 01/09/19 17:59 Last Admin: 01/09/19 17:22 Dose: Not Given Documented by: [id number] Multivitamins 10 ml/ Thiamine HCl 100 mg/ Folic Acid 1 mg/Sodium Chloride 1,011.2 mls @ 1,011.2 mls/hr IV .Q1H STA Stop: 01/09/19 17:59 Last Admin: 01/09/19 17:23 Dose: Not Given Documented by: [id number] Acetaminophen (Ofirmev) 1,000 mg in 100 mls @ 400 mls/hr IV NOW STA Stop: 01/09/19 19:16 Last Infusion: 01/09/19 19:42 Dose: 0 mls/hr Documented by: [id number] Admin: 01/09/19 19:07 Dose: 400 mls/hr Documented by: [id number] Ondansetron HCl (Zofran) 4 mg IV NOW STA Stop: 01/09/19 16:59 Last Admin: 01/09/19 17:22 Dose: 4 mg Documented by: [id number] Medical Decision Making Differential Diagnosis Etiologies such as appendicitis, diverticulitis, PUD, biliary pathology, UTI, pancreatitis, obstruction, mesenteric ischemia, aortic pathology, infections, inflammatory bowel disease, renal colic, as well as others were entertained. Medical Records Attestation: I reviewed the patient's medical records. Home Medications Current Medication List: was personally reviewed by me Laboratory Data Attestation: I reviewed the patient's lab results. Result diagrams: 01/09/19 17:17 01/09/19 17:17 Lab Results 01/09/19 01/09/19 01/09/19 Range/Units 17:17 17:17 17:17 WBC 12.50 H (4.8-10.8) K/uL RBC 4.61 (4.2-5.4) M/uL Hgb 14.5 (12.0-16.0) g/dL Hct 40.7 (37-47) % MCV 88.3 (80-100) fL MCH 31.5 (25-34) pg MCHC 35.6 (32-36) g/dL RDW Std Deviation 42.6 (36.4-46.3) fL RDW Coeff of Blanco 13.2 (11.5-14.5) % Plt Count 148 (130-400) K/uL MPV 10.4 (7.4-10.4) fL Immature Gran % (Auto) 0.2 % Neut % (Auto) 84.6 % Lymph % (Auto) 8.5 % [place] % (Auto) 6.1 % Eos % (Auto) 0.4 % Baso % (Auto) 0.2 % Immature Gran # (Auto) 0.03 H (0.00-0.02) K/uL Neut # (Auto) 10.58 H (1.4-6.5) K/uL Lymph # (Auto) 1.06 L (1.2-3.4) K/uL [place] # (Auto) 0.76 H (0.11-0.59) K/uL Eos # (Auto) 0.05 (0-0.5) K/uL Baso # (Auto) 0.02 (0-0.2) K/uL Sodium 139 (136-145) mmol/L Potassium 3.8 (3.5-5.1) mmol/L Chloride 107 (98-107) mmol/L Carbon Dioxide 26 (21-32) mmol/L Anion Gap 6.0 (3-11) BUN 10 (7-18) mg/dl Creatinine 0.54 L (0.6-1.2) mg/dl Est Cr Clr Drug Dosing 88.9 ml/min Est GFR ( Amer) 148.8 Est GFR (Non-Af Amer) 128.4 BUN/Creatinine Ratio 18.3 (10-20) Glucose 95 (70-99) mg/dl Calcium 8.3 L (8.5-10.1) mg/dl Magnesium 1.8 (1.8-2.4) mg/dl Total Bilirubin 0.6 (0.2-1) mg/dl AST 17 (15-37) U/L ALT 14 (12-78) U/L Alkaline Phosphatase 61 (45-117) U/L Troponin I < 0.015 (0-0.045) ng/ml Total Protein 7.0 (6.4-8.2) gm/dl Albumin 3.4 (3.4-5.0) gm/dl Globulin 3.6 (2.5-4.0) gm/dl Albumin/Globulin Ratio 0.9 (0.9-2) Lipase 55 L (73-393) U/L HCG, Qual (Negative) 01/09/19 Range/Units 17:17 WBC (4.8-10.8) K/uL RBC (4.2-5.4) M/uL Hgb (12.0-16.0) g/dL Hct (37-47) % MCV (80-100) fL MCH (25-34) pg MCHC (32-36) g/dL RDW Std Deviation (36.4-46.3) fL RDW Coeff of Blanco (11.5-14.5) % Plt Count (130-400) K/uL MPV (7.4-10.4) fL Immature Gran % (Auto) % Neut % (Auto) % Lymph % (Auto) % [place] % (Auto) % Eos % (Auto) % Baso % (Auto) % Immature Gran # (Auto) (0.00-0.02) K/uL Neut # (Auto) (1.4-6.5) K/uL Lymph # (Auto) (1.2-3.4) K/uL [place] # (Auto) (0.11-0.59) K/uL Eos # (Auto) (0-0.5) K/uL Baso # (Auto) (0-0.2) K/uL Sodium (136-145) mmol/L Potassium (3.5-5.1) mmol/L Chloride (98-107) mmol/L Carbon Dioxide (21-32) mmol/L Anion Gap (3-11) BUN (7-18) mg/dl Creatinine (0.6-1.2) mg/dl Est Cr Clr Drug Dosing ml/min Est GFR ( Amer) Est GFR (Non-Af Amer) BUN/Creatinine Ratio (10-20) Glucose (70-99) mg/dl Calcium (8.5-10.1) mg/dl Magnesium (1.8-2.4) mg/dl Total Bilirubin (0.2-1) mg/dl AST (15-37) U/L ALT (12-78) U/L Alkaline Phosphatase (45-117) U/L Troponin I (0-0.045) ng/ml Total Protein (6.4-8.2) gm/dl Albumin (3.4-5.0) gm/dl Globulin (2.5-4.0) gm/dl Albumin/Globulin Ratio (0.9-2) Lipase (73-393) U/L HCG, Qual Negative (Negative) Imaging Data Radiologist's Impression: Radiology results as stated below per my review and the radiologist's interpretation: ABDOMEN AND PELVIS CT WITH IV CONTRAST CT DOSE: 241.66 mGy.cm HISTORY: Mid abdominal pain. TECHNIQUE: Multiaxial CT images of the abdomen and pelvis were performed following the use of intravenous contrast. A dose lowering technique was utilized adhering to the principles of ALARA. COMPARISON STUDY: Abdomen and pelvis CT 11/13/2010. FINDINGS: The lung bases demonstrate bronchiectasis with chronic scarring and a few opacified distal bronchi. There is a new 9 mm nodule within the left lower lobe on image 6. No pneumoperitoneum. No pneumatosis. No fractures within the visualized osseous structures. Heterogeneous enhancement within the liver with periportal edema. There is a linear cleft seen within the anterior segment of the right hepatic lobe. This is new from the prior study and could represent an area of scarring. There is trace ascites seen within the abdomen. The spleen is at the upper limits of normal. The adrenal glands, pancreas, and kidneys are unremarkable. No hydronephrosis. No retroperitoneal lymphadenopathy. The main portal vein is patent. The venous structures are dilated suggestive of volume overload. The bladder and uterus are unremarkable. There is a slightly thick- walled cystic lesion within the right posterior adnexa. This measures 4.4 cm and may represent a complex right ovarian cyst. The colon is completely decompressed resulting in suboptimal evaluation. Apparent thickening of the colon favors underdistention. The visualized appendix is unremarkable. No evidence for bowel obstruction. IMPRESSION: 1. Redemonstration of the chronic scarring and bronchiectasis within the lung bases. 2. There is a new 9 mm nodule within left lower lobe. Pulmonary consultation as well as follow-up described below. 3. Apparent thickening of the colon is likely due to the complete decompression. A low-grade colitis could also have a similar appearance in the appropriate clinical setting. 4. Normal appendix. 5. Periportal edema suggestive of volume overload. This may account for the heterogeneous enhancement within the liver. Recommend correlation with LFTs to exclude an underlying hepatic abnormality. There is also trace ascites. 6. A linear cleft within the anterior segment of the right hepatic lobe which is new from the prior study. This could represent scarring or old trauma. 7. A 4.4 cm thick-walled cystic lesion within the right posterior adnexa. This favors a complex right ovarian cyst. Please refer to below summary of Fleischner criteria recommendations for follow- up of incidental CT nodules (Brigette Holden, Guidelines for management of small pulmonary nodules detected on CT scans: A statement from the Fleischner Society, Radiology 237: [phone].) SOLID NODULES Solitary nodule size: <6 mm * Low risk patients: no follow-up needed * high risk patients: optional CT at 12 months Solitary nodule size: 6-8 mm * Low risk patients: follow-up at 6-12 months, then consider further follow-up at 18-24 months * high risk patients: initial follow-up CT at 6-12 months and then at 18-24 months if no change Solitary nodule size: >8 mm * either low or high risk patients - consider follow-up CT at 3 months, and/or CT-PET, and/or biopsy Multiple nodules size: <6 mm * Low risk patients: no routine follow-up * high risk patients: optional CT at 12 months Multiple nodules size: 6-8 mm * Low risk patients: follow-up at 3-6 months, then consider further follow-up at 18-24 months * high risk patients: follow-up at 3-6 months, then at 18-24 months if no change Multiple nodules size: >8 mm * Low risk patients: follow-up at 3-6 months, then consider further follow-up at 18-24 months * high risk patients: follow-up at 3-6 months, then at 18-24 months if no change Note: newly detected indeterminate nodule in persons 35 years of age or older. * Low risk patients: minimal or absent history of smoking and/or other known risk factors * high risk patients: history of smoking or of other known risk factors (e.g. first degree relative with lung cancer, or exposure to asbestos, radon, uranium) * if a nodule up to 8 mm is partly solid or is ground glass further follow-up is required after 24 months to exclude possible slow growing adenocarcinoma (GERALDINE) SUBSOLID NODULES Solitary pure ground-glass nodule * nodule size <6 mm - no CT follow-up required * nodule size >=6 mm - follow-up CT at 6-12 months, then every 2 years until 5 years Solitary part-solid nodule * nodule size <6 mm - no CT follow-up required * nodule size >=6 mm - follow-up CT at 3-6 months. If unchanged, and solid component remains <6 mm, then annual follow-up for 5 years Multiple subsolid nodules * nodule size <6 mm - follow-up CT at 3-6 months, consider further follow-up at 2 and 4 years if stable * nodule size >=6 mm - follow-up CT at 3-6 months, subsequent management based on the most suspicious nodule(s) Electronically signed by: Myron Sweet M.D. 01/09/2019 7:59 PM. ABDOMINAL ULTRASOUND, RIGHT UPPER QUADRANT HISTORY: Mid abdominal pain.. COMPARISON: None. FINDINGS: Pancreas: The pancreas demonstrates a normal echotexture. Liver: Unremarkable. Gallbladder: No gallbladder wall thickening. No gallstones. CBD: 2 mm. Right kidney: No hydronephrosis. IMPRESSION: No sonographic abnormality identified within the right upper quadrant. Electronically signed by: Myron Sweet M.D. 01/09/2019 9:23 PM. PELVIC ULTRASOUND, TRANSABDOMINAL AND TRANSVAGINAL HISTORY: abd pain, R ovarian cyst COMPARISON: Abdomen and pelvis CT 01/09/2019. FINDINGS: Uterus: 8.2 x 4.6 x 4.7 cm. No uterine masses. Endometrial stripe: 1 cm in thickness. Right ovary: The right ovary is primarily replaced by a heterogeneous thick- walled cystic lesion measuring 4.8 x 4.1 x 4.0 cm. This demonstrates internal septations and favors a hemorrhagic cyst. Left ovary: Normal in size and demonstrates normal color flow. Miscellaneous:Trace pelvic free fluid. IMPRESSION: A 4.8 x 4.1 x 4.0 cm complex right ovarian cyst. This favors a hemorrhagic cyst. Follow-up pelvic ultrasound in 6-8 weeks is recommended to ensure resolution. Electronically signed by: Myron Sweet M.D. 01/09/2019 9:25 PM ECG Data Attestation: I personally reviewed and interpreted this ECG as follows: Indication: abdominal pain Rate (beats per minute): 49 Rhythm: sinus bradycardia Findings: + other (non-specific T wave changes); no ST depression and no ST elevation Blood Pressure Blood Pressure Findings: Elevated blood pressure Blood Pressure Disposition: further management by hospitalist MDM Narrative Patient is a 20-year-old female history of Subutex use and report of hypoplastic right lung presents today complaining of abdominal pain. Patient states around 2:00 severe abdominal pain with nausea and vomiting and diarrhea. States feels like prior episode of pancreatitis that she has had in the past. Last Subutex use yesterday. Denies any trauma. Diffuse abdominal tenderness. Laboratory studies and CT were completed. Lower suspicion is cardiac. Negative . Patient does endorse marijuana use which may be contributing to her symptomatology. Patient has no significant lipase elevation and normal LFTs. Slight leukocytosis 12.5 is noted. Negative troponin with EKG of lower suspicion for acute ACS. Ultrasound of the right upper quadrant was also completed. CT scan showed evidence of some chronic lung scarring and a new left lower lobe nodule. Some colonic decompression possibly consistent with low- grade colitis. No evidence of appendicitis. Again labs do not support any acute liver dysfunction. Does have evidence of a right ovarian cyst although with the predominance of her pain is in the right upper quadrant Ultrasound again of the gallbladder and pelvic area was completed. Still significant pain refractory to multiple doses of pain medicine. . Do not believe this represents torsion. Evidence of cyst and no acute cholecystitis on ultrasound. Given the refractory pain she is been experiencing with multiple doses of pain medicine discussed with the hospitalist and the patient for admission. Impression & Plan Abdominal pain, Right ovarian cyst Discharge Plan Visit Data Chief Complaint: Abdominal Pain Stated Complaint: AB PAIN ED Provider: Hasmukh Mast Discharge Problem: Abdominal pain, Right ovarian cyst Patient Disposition: Being Evaluated by Hospitalist Forms Stand Alone Forms: My [facility] Prescriptions Prescriptions: No Action albuterol sulfate 2.5 mg /3 mL (0.083 %) Solution For Nebulization 2.5 mg INHALATION QID RF: 0 albuterol sulfate [Ventolin HFA] 90 mcg/actuation Hfa Aerosol Inhaler 2 puff INHALATION QID RF: 0 buprenorphine HCl 8 mg tablet, sublingual 8 mg Sublingual TID RF: 0 Referrals Referrals: Kenny Mohan MD [Primary Care Provider] - Discharge Problem: Abdominal pain Qualifiers: Abdominal location: unspecified location Qualified Code(s): R10.9 - Unspecified abdominal pain The scribe's documentation has been prepared under my direction and personally reviewed by me in its entirety. I confirm that the note above accurately reflects all work, treatment, procedures, and medical decision making performed by me.
[2019-01-10] MEDS ORDERED: ALBUTEROL HFA 8 GM INHALER INH PRN (01:09)
[2019-01-10] MEDS ORDERED: ONDANSETRON INJ 2 MG/ML 2 ML VIAL IV PRN (01:09)
[2019-01-10] MEDS ORDERED: ACETAMINOPHEN 325 MG TAB PO PRN (01:09)
[2019-01-10] MEDS: HYDROmorphone INJ 0.5 MG/0.5 ML SYR IV PRN ×3 (02:01→11:48)
[2019-01-10] MEDS: BUPRENORPHINE HCL 8 MG SUBL SL SCH ×3 (02:02→14:41)
[2019-01-10] MEDS: D5W AND NSS 1,000 ML IV SCH ×2 (02:05→09:42)
--- NOTE | 2019-01-10 02:15 | History and Physical Report ---
DATE OF ADMISSION: 01/10/2019 CHIEF COMPLAINT: Abdominal pain. HISTORY OF PRESENT ILLNESS: This is a 28-year-old female with past medical history significant for asthma, congenital anomaly of the lungs, history of genital herpes, history of depression, history of drug use and history of tobacco use. The patient states she is currently smoking marijuana every day presents with severe abdominal pain that started yesterday afternoon with several episodes of nausea, vomiting and also had some diarrhea. The patient received significant pain medication in the Emergency Room and the imaging studies show right complex ovarian cyst, possible hemorrhagic cyst. Gallbladder ultrasound was unremarkable. CT of abdomen and pelvis showed possible low-grade colitis. The patient's hemodynamics are stable. Denies any chest pain. No shortness of breath. No cough. No fever. No chills. No headache. No runny nose. No sore throat. No difficulty swallowing. Could not eat much today. No blood in the stools or black stools. No burning micturition. No hematuria. No swelling of the legs. ALLERGIES: ANESTHETICS-AMIDE TYPE, KETOROLAC, NALOXONE, PENICILLINS. PAST MEDICAL HISTORY: As mentioned above. PAST SURGICAL HISTORY: Dental surgery, foot surgery, bowel surgery after delivery. MEDICATIONS: The patient is on albuterol inhalation q.i.d. and buprenorphine 8 mg sublingual t.i.d. FAMILY HISTORY: Significant for father has alcoholism and diabetes. Mother has Parkinson's and heart disorder. Sister has clubbed feet. SOCIAL HISTORY: Single, smokes half pack a day. Denies alcohol use. Smokes marijuana drug every day and takes buprenorphine. REVIEW OF SYMPTOMS: As per HPI. Rest of review of systems negative. PHYSICAL EXAMINATION: GENERAL: The patient is of moderate build, moaning in pain. VITAL SIGNS: Temperature 36.3, pulse 51, respiratory rate 20, blood pressure 144/96 and oxygen 99% on room air. HEENT: No pallor. No icterus. NECK: No JVD. No neck masses. CARDIOVASCULAR: S1, S2 heard. Regular rate and rhythm. No murmur. No gallop. RESPIRATORY SYSTEM: Normal AP diameter. No accessory muscle use. No wheezing. No crackles. ABDOMEN: Soft. Bowel sounds present. Diffuse tenderness and guarding present. No distention seen. CENTRAL NERVOUS SYSTEM: Nonfocal. EXTREMITIES: No edema. No erythema. LABORATORY DATA: WBC 12.5, hemoglobin 14.5, hematocrit 40.7 and platelets 148. Sodium 139, potassium 3.8, chloride 107, bicarbonate 26, BUN 10, creatinine 0.5, serum glucose 95, magnesium 1.8, total bilirubin 0.6, AST 17, ALT 14 and alkaline phosphatase 61. Troponin I less than 0.015. Lipase 55. HCG qualitative negative. Pelvic ultrasound shows 4.8 x 4.1 x 4 cm complex right ovarian cyst possible hemorrhagic cyst. Followup pelvic ultrasound in 6- 8 weeks is recommended. Gallbladder ultrasound unremarkable. CT of the abdomen and pelvis with I.V. contrast with Re demonstration of chronic scarring and bronchiectasis in the lung bases. There is a 9 mm nodule within the left lower lobe, pulmonary consultation as well as followup described below, low grade colitis possibility, a 4.4 cm thick wall cystic lesion within the right posterior adnexa. Electrocardiogram, sinus bradycardia at [address] changes. ASSESSMENT AND PLAN: This is a 28-year-old female who presents with abdominal pain, nausea and vomiting. 1. Severe abdominal pain, nausea, vomiting and uses marijuana daily, could be possibly from marijuana use. CAT scan is showing possible low-grade colitis also has right ovarian cyst with a possible hemorrhagic cyst, torsion does not seem at this time. We will keep her n.p.o., I.V. fluids, pain medication p.r.n., I.V. antibiotics p.r.n. Consult Gastroenterology and consult Obstetrics and Gynecology. We will closely monitor on medical floor. 2. History of asthma, history of congenital anomaly of the lung, continue home inhalers. 3. Chronic pain, on Suboxone. 4. Lung nodule 9mm left lower lobe. hx of smoking. Needs close followup. 5. Deep venous thrombosis prophylaxis, sequential compression devices for now. 6. Disposition: Closely monitor on the medical floor. Level 1 full code. MTDD
[2019-01-10 03:17] LABS: Appearance Urine Clear (Clear); Bacteria Urine Automated Negative (Negative); Bilirubin Urine Negative (Negative); Blood Urine Negative (Negative); Cast Urine Automated 0 /lpf (0-5); Color Urine Yellow; Epithelial Cell Urine Auto >30 /lpf (0-5); Glucose Urine UA Negative (Negative); Ketones Urine 1+ (Negative); Leukocyte Esterase Urine Trace (Negative); Nitrite Urine Negative (Negative); Protein Urine Negative (Negative); RBC Urine Automated 0-4 /hpf (0-4); Specific Gravity Urine 1.015 (1.000-1.030); Urobilinogen Urine Negative (Negative)
[2019-01-10 05:55] LABS: Basophils # (auto) 0.02 K/uL (0-0.2); Basophils % (auto) 0.2 %; Eosinophils # (auto) 0.01 K/uL (0-0.5); Eosinophils % (auto) 0.1 %; Hematocrit (blood only) 37.3 % (37-47); Hemoglobin 12.9 g/dL (12.0-16.0); Immature Granulocytes # (auto) 0.02 K/uL (0.00-0.02); Immature Granulocytes % (auto) 0.2 %; Lymphocytes # (auto) 1.41 K/uL (1.2-3.4); Lymphocytes % (auto) 13.6 %; Mean Corpuscular Hgb Conc 34.6 g/dL (32-36); Mean Corpuscular Volume 89.2 fL (80-100); Mean Platelet Volume 10.1 fL (7.4-10.4); Monocytes # (auto) 0.75 K/uL (0.11-0.59); Monocytes % (auto) 7.2 %; Neutrophils # (auto) 8.19 K/uL (1.4-6.5); Neutrophils % (auto) 78.7 %; Platelet Count 139 K/uL (130-400); RDW Standard Deviation 42.7 fL (36.4-46.3); Red Blood Count 4.18 M/uL (4.2-5.4)
[2019-01-10 06:39] LABS: BUN Creatinine Ratio 8.7 (10-20); Calcium 7.7 mg/dl (8.5-10.1); Creatinine Clr Calc Pharmacy 102.6 ml/min; Est GFR (African American) 148.8; Est GFR (Non-African American) 128.4; Magnesium 1.6 mg/dl (1.8-2.4); Potassium 3.5 mmol/L (3.5-5.1)
[2019-01-10] MEDS: ALBUTEROL 0.083% NEBU SOLN 3 ML VIAL INH SCH ×3 (07:11→15:28)
[2019-01-10] MEDS ORDERED: FAMOTIDINE 20 MG in SYRINGE 3 ML IV SCH (09:00)
--- NOTE | 2019-01-10 11:17 | Gastrointestinal Consultation ---
Date of Consultation January 10, 2019 Assessment & Plan (1) Abdominal pain: 28 year old female admitted w/ chronic abd pain x 4 years associated with mild nausea, no vomiting. No change in BM. No acute GI findings on CT, ABD US. No leukocytosis, elevated LFTs or lipase. 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 GI differentials: gastritis, IBS, cannabinoid hyperemesis etc Recommend Ob-Practice Office Associate follow up Antiemetics PRN Analgesia PRN PO PPI daily Urine toxicology Would avoid marijuana use She should have an EGD/Colonoscopy as OP She does not follow w/ [facility], [place] or [facility] and can have this arranged closer to her home by her PCP GI to sign off. Thank you for allowing us to participate in the care of this patient. Please call with any acute changes, questions or concerns. Please see addendum below with additional recommendation from my supervising physician. Present on Admission?: Yes Supervising Physician Co-Signing Physician Notes I performed a history and physical examination of the patient, including specifically on physical exam - soft, nontender abdomen. I have discussed the patient's management with Yamila. Please refer to the nurse practitioner's note for the documented findings and plan of care. 28 female patient with abdominal pain and nausea, CT scan showed complex ovarian cyst and some thickening of the colon seems like underdistention. No diarrhea. Labs within normal. Plan: PO PPI Avoid cannabinoids EDG/Colonoscopy as OP. VEGETABLE COOK evaluation. Recall GI as needed. History of Present Illness Reason for Consultation: abd pain Requesting Physician: Jacky Attending Physician: Natacha Rico MD History of Present Illness 28 year old female with history of asthma, ongoing marijuana use and others below who presented to the ED for abdominal pain - GI asked to evaluate. She notes this is chronic. Has had abdominal pain x 4 years. Often occurs daily but is intermittent. Generalized. No assocaition with food. Can occasionally have N/V. No change in BM. Denies black or bloody stools. No weight loss. No fever, chills, CP, SOB. EGD: none Colonoscopy: none Prior abd surgeries: she notes a bowel surgery in infancy Pelvic US: A 4.8 x 4.1 x 4.0 cm complex right ovarian cyst. This favors a hemorrhagic cyst. Follow-up pelvic ultrasound in 6-8 weeks is recommended to ensure resolution. ABD US: No sonographic abnormality identified within the right upper quadrant. CT: Redemonstration of the chronic scarring and bronchiectasis within the lung bases.There is a new 9 mm nodule within left lower lobe. Pulmonary consultation as well as follow-up described below.Apparent thickening of the colon is likely due to the complete decompression. A low-grade colitis could also have a similar appearance in the appropriate clinical setting.Normal appendix.Periportal edema suggestive of volume overload. This may account for the heterogeneous enhancement within the liver. Recommend correlation with LFTs to exclude an underlying hepatic abnormality. There is also trace ascites. A linear cleft within the anterior segment of the right hepatic A 4.4 cm thick-walled cystic lesion within the right posterior adnexa. This favors a complex right ovarian cyst. Allergies Allergy/AdvReac Type Severity Reaction Status Date / Time Anesthetics - Amide Type Allergy Unknown / Verified 01/09/19 17:56 ketorolac Allergy Unknown . Verified 01/09/19 17:56 naloxone Allergy Unknown . Verified 01/09/19 17:56 Penicillins Allergy Unknown . Verified 01/09/19 17:56 Home Medications Home Medications Medication Instructions Recorded Confirmed Type albuterol sulfate 2.5 mg INHALATION QID 09/27/18 01/09/19 History albuterol sulfate [Ventolin HFA] 2 puff INHALATION QID 09/27/18 01/09/19 History buprenorphine HCl 8 mg SUBLINGUAL TID 09/27/18 01/09/19 History Patient History Medical History Hypoplasia of lung Bronchiectasis with acute exacerbation (Acute) Marijuana use (Acute) Surgical History History of intestinal surgery (Resolved) Social History Preferred Language: Lithuanian Communication Ability: Effective Centerless Grinder Tender Required: No Beliefs That Will Affect Care: None Current Living Situation: Family and Significant Other Feels Safe at Home: Yes Safety Concerns: Feels Safe At This Time Smoking Status: Current every day smoker Tobacco Type: cigarettes Hx Alcohol Use: No Hx Substance Use: Yes substance use type: opiates Substance Use Type Other:: patient has history of use; currently on subutex Review of Systems Constitutional: no fever, no chills and no fatigue Respiratory: no cough, no chest congestion and no dyspnea on exertion Cardiovascular: no chest pain, no chest pain at rest and no dyspnea Gastrointestinal: + abdominal pain and + bloating; no nausea, no vomiting, no hematemesis, no pain with swallowing, no cramping, no excessive flatulence, no change in stools, no constipation, no fecal incontinence, no constant urge to pass stools, no melena and no problem reported Physical Exam Constitutional: well developed and well nourished Respiratory: normal respiratory effort, lungs clear to auscultation Cardiovascular: RRR, no murmur, no edema Gastrointestinal (Abdomen): Inspection/Auscultation: abdomen normal to inspection and normal bowel sounds Percussion/Palpation: + abdomen tender and abdomen soft; no guarding and abdomen not rigid Skin: no rashes, warm and dry Psychiatric: Orientation: alert and oriented x 3 Results & Data Vital Signs (Past 12 Hours) Vital Signs Temp Pulse Pulse Resp BP BP BP 01/10/19 08:00 37.0 C 65 10 L 102/72 01/10/19 07:13 57 L 16 01/10/19 01:10 36.7 C 80 18 126/70 01/10/19 00:02 01/10/19 00:01 128/88 01/09/19 23:31 144/96 H 01/09/19 23:30 Pulse Ox 01/10/19 08:00 95 01/10/19 07:13 95 01/10/19 01:10 96 01/10/19 00:02 97 01/10/19 00:01 99 01/09/19 23:31 99 01/09/19 23:30 99 Laboratory Results 01/10/19 01/10/19 01/10/19 Range/Units 05:41 05:41 03:03 WBC 10.40 (4.8-10.8) K/uL RBC 4.18 L (4.2-5.4) M/uL Hgb 12.9 (12.0-16.0) g/dL Hct 37.3 (37-47) % MCV 89.2 (80-100) fL MCH 30.9 (25-34) pg MCHC 34.6 (32-36) g/dL RDW Std Deviation 42.7 (36.4-46.3) fL RDW Coeff of Blanco 13.0 (11.5-14.5) % Plt Count 139 (130-400) K/uL MPV 10.1 (7.4-10.4) fL Immature Gran % (Auto) 0.2 % Neut % (Auto) 78.7 % Lymph % (Auto) 13.6 % Lea % (Auto) 7.2 % Eos % (Auto) 0.1 % Baso % (Auto) 0.2 % Immature Gran # (Auto) 0.02 (0.00-0.02) K/uL Neut # (Auto) 8.19 H (1.4-6.5) K/uL Lymph # (Auto) 1.41 (1.2-3.4) K/uL Lea # (Auto) 0.75 H (0.11-0.59) K/uL Eos # (Auto) 0.01 (0-0.5) K/uL Baso # (Auto) 0.02 (0-0.2) K/uL Sodium 139 (136-145) mmol/L Potassium 3.5 (3.5-5.1) mmol/L Chloride 108 H (98-107) mmol/L Carbon Dioxide 25 (21-32) mmol/L Anion Gap 6.0 (3-11) BUN 5 L D (7-18) mg/dl Creatinine 0.54 L (0.6-1.2) mg/dl Est Cr Clr Drug Dosing 102.6 ml/min Est GFR ( Amer) 148.8 Est GFR (Non-Af Amer) 128.4 BUN/Creatinine Ratio 8.7 L (10-20) Glucose 126 H (70-99) mg/dl Calcium 7.7 L (8.5-10.1) mg/dl Magnesium 1.6 L (1.8-2.4) mg/dl Total Bilirubin (0.2-1) mg/dl AST (15-37) U/L ALT (12-78) U/L Alkaline Phosphatase (45-117) U/L Troponin I (0-0.045) ng/ml Total Protein (6.4-8.2) gm/dl Albumin (3.4-5.0) gm/dl Globulin (2.5-4.0) gm/dl Albumin/Globulin Ratio (0.9-2) Lipase (73-393) U/L HCG, Qual (Negative) Urine Color Yellow Urine Appearance Clear (Clear) Urine pH 7.0 (4.5-7.5) Ur Specific [place] 1.015 (1.000-1.030) Urine Protein Negative (Negative) Urine Glucose (UA) Negative (Negative) Urine Ketones 1+ H (Negative) Urine Blood Negative (Negative) Urine Nitrite Negative (Negative) Urine Bilirubin Negative (Negative) Urine Urobilinogen Negative (Negative) Ur Leukocyte Esterase Trace H (Negative) Urine WBC (Auto) 1-5 (0-5) /hpf Urine RBC (Auto) 0-4 (0-4) /hpf U Hyaline Cast (Auto) 0 (0-5) /lpf U Epithel Cells (Auto) >30 H (0-5) /lpf Urine Bacteria (Auto) Negative (Negative) 01/09/19 01/09/19 01/09/19 Range/Units 17:17 17:17 17:17 WBC (4.8-10.8) K/uL RBC (4.2-5.4) M/uL Hgb (12.0-16.0) g/dL Hct (37-47) % MCV (80-100) fL MCH (25-34) pg MCHC (32-36) g/dL RDW Std Deviation (36.4-46.3) fL RDW Coeff of Blanco (11.5-14.5) % Plt Count (130-400) K/uL MPV (7.4-10.4) fL Immature Gran % (Auto) % Neut % (Auto) % Lymph % (Auto) % Lea % (Auto) % Eos % (Auto) % Baso % (Auto) % Immature Gran # (Auto) (0.00-0.02) K/uL Neut # (Auto) (1.4-6.5) K/uL Lymph # (Auto) (1.2-3.4) K/uL Lea # (Auto) (0.11-0.59) K/uL Eos # (Auto) (0-0.5) K/uL Baso # (Auto) (0-0.2) K/uL Sodium 139 (136-145) mmol/L Potassium 3.8 (3.5-5.1) mmol/L Chloride 107 (98-107) mmol/L Carbon Dioxide 26 (21-32) mmol/L Anion Gap 6.0 (3-11) BUN 10 (7-18) mg/dl Creatinine 0.54 L (0.6-1.2) mg/dl Est Cr Clr Drug Dosing 88.9 ml/min Est GFR ( Amer) 148.8 Est GFR (Non-Af Amer) 128.4 BUN/Creatinine Ratio 18.3 (10-20) Glucose 95 (70-99) mg/dl Calcium 8.3 L (8.5-10.1) mg/dl Magnesium 1.8 (1.8-2.4) mg/dl Total Bilirubin 0.6 (0.2-1) mg/dl AST 17 (15-37) U/L ALT 14 (12-78) U/L Alkaline Phosphatase 61 (45-117) U/L Troponin I < 0.015 (0-0.045) ng/ml Total Protein 7.0 (6.4-8.2) gm/dl Albumin 3.4 (3.4-5.0) gm/dl Globulin 3.6 (2.5-4.0) gm/dl Albumin/Globulin Ratio 0.9 (0.9-2) Lipase 55 L (73-393) U/L HCG, Qual Negative (Negative) Urine Color Urine Appearance (Clear) Urine pH (4.5-7.5) Ur Specific [place] (1.000-1.030) Urine Protein (Negative) Urine Glucose (UA) (Negative) Urine Ketones (Negative) Urine Blood (Negative) Urine Nitrite (Negative) Urine Bilirubin (Negative) Urine Urobilinogen (Negative) Ur Leukocyte Esterase (Negative) Urine WBC (Auto) (0-5) /hpf Urine RBC (Auto) (0-4) /hpf U Hyaline Cast (Auto) (0-5) /lpf U Epithel Cells (Auto) (0-5) /lpf Urine Bacteria (Auto) (Negative) 01/09/19 Range/Units 17:17 WBC 12.50 H (4.8-10.8) K/uL RBC 4.61 (4.2-5.4) M/uL Hgb 14.5 (12.0-16.0) g/dL Hct 40.7 (37-47) % MCV 88.3 (80-100) fL MCH 31.5 (25-34) pg MCHC 35.6 (32-36) g/dL RDW Std Deviation 42.6 (36.4-46.3) fL RDW Coeff of Blanco 13.2 (11.5-14.5) % Plt Count 148 (130-400) K/uL MPV 10.4 (7.4-10.4) fL Immature Gran % (Auto) 0.2 % Neut % (Auto) 84.6 % Lymph % (Auto) 8.5 % Lea % (Auto) 6.1 % Eos % (Auto) 0.4 % Baso % (Auto) 0.2 % Immature Gran # (Auto) 0.03 H (0.00-0.02) K/uL Neut # (Auto) 10.58 H (1.4-6.5) K/uL Lymph # (Auto) 1.06 L (1.2-3.4) K/uL Lea # (Auto) 0.76 H (0.11-0.59) K/uL Eos # (Auto) 0.05 (0-0.5) K/uL Baso # (Auto) 0.02 (0-0.2) K/uL Sodium (136-145) mmol/L Potassium (3.5-5.1) mmol/L Chloride (98-107) mmol/L Carbon Dioxide (21-32) mmol/L Anion Gap (3-11) BUN (7-18) mg/dl Creatinine (0.6-1.2) mg/dl Est Cr Clr Drug Dosing ml/min Est GFR ( Amer) Est GFR (Non-Af Amer) BUN/Creatinine Ratio (10-20) Glucose (70-99) mg/dl Calcium (8.5-10.1) mg/dl Magnesium (1.8-2.4) mg/dl Total Bilirubin (0.2-1) mg/dl AST (15-37) U/L ALT (12-78) U/L Alkaline Phosphatase (45-117) U/L Troponin I (0-0.045) ng/ml Total Protein (6.4-8.2) gm/dl Albumin (3.4-5.0) gm/dl Globulin (2.5-4.0) gm/dl Albumin/Globulin Ratio (0.9-2) Lipase (73-393) U/L HCG, Qual (Negative) Urine Color Urine Appearance (Clear) Urine pH (4.5-7.5) Ur Specific [place] (1.000-1.030) Urine Protein (Negative) Urine Glucose (UA) (Negative) Urine Ketones (Negative) Urine Blood (Negative) Urine Nitrite (Negative) Urine Bilirubin (Negative) Urine Urobilinogen (Negative) Ur Leukocyte Esterase (Negative) Urine WBC (Auto) (0-5) /hpf Urine RBC (Auto) (0-4) /hpf U Hyaline Cast (Auto) (0-5) /lpf U Epithel Cells (Auto) (0-5) /lpf Urine Bacteria (Auto) (Negative) (1) Abdominal pain Abdominal location: unspecified location Qualified Code(s): R10.9 - Unspecified abdominal pain
== END 2019-01-10 16:19 | disposition home or self-care (01) ==
LOC: ED 16:37 → 3N 16:37